=== PATIENT | male | born 1950 | race African-American/Black ===

== ENCOUNTER 2017-11-11 07:15 | Inpatient (IN) ==
[2017-11-06 13:54] LABS: Basophils % 0.2 % (0.0-0.8); Hematocrit 36.1 VOL% (42.0-52.0); Hemoglobin 12.4 GM/DL (14.0-18.0); Immature Granulocytes % 0.2 %; Immature Granulocytes Absolute 0.02 #; Lymphocytes # 2.4 10*3/uL (1.4-4.0); Lymphocytes % 24.6 % (21.2-54.2); Mean Corpuscular HGB Conc 34.3 GM/DL (32-36); Mean Corpuscular Hemoglobin 33 PG (27-34); Mean Corpuscular Volume 96.8 FL (87-102); Mean Platelet Volume 8.5 FL (9.6-12.0); Monocytes # 0.8 10*3/uL (0.11-0.8); Monocytes % 8.1 % (1.7-12.7); Neutrophils # 6.6 10*3/uL (1.4-7.4); Neutrophils % 66.9 % (38.7-73.9); Platelet Count 242 T/CUMM (130-400); Red Blood Count 3.73 MC/CUMM (3.8-5.5); Red Cell Distribution Width 16.3 % (9.3-17.3); White Blood Count 9.8 T/CUMM (4-12)
[2017-11-06 14:23] LABS: Alanine Aminotransferase 17 U/L (16-61); Alkaline Phosphatase 129 U/L (45-117); Aspartate Amino Transferase 15 U/L (0-37); Bilirubin,Total < 0.39 MG/DL (0.2-1.0); Blood Urea Nitrogen 19 MG/DL (7-18); Calcium 8.8 MG/DL (8.5-10.1); Glucose 92 MG/DL (74-106); Osmolality,Calculated 282.3 MOS/KG (273-304); Potassium 5.5 MMOL/L (3.5-5.1); Sodium 141 MMOL/L (136-145); Total Protein 6.6 G/DL (6.4-8.3)
[~2017-11-11 07:15] MED LIST: ceFAZolin 1,000 MG VIAL ONE; ceFAZolin 1,000 MG in SYRINGE 1 EACH IV ONE
[2017-11-11] MEDS ORDERED: FAMOTIDINE 20 MG TABLET ONE (07:43)
[2017-11-11] MEDS ORDERED: FAMOTIDINE 20 MG TABLET PO ONE (07:44)
[2017-11-11] MEDS ORDERED: LACTATED RINGERS 1,000 ML IV SCH (08:00)
[2017-11-11] MEDS ORDERED: THROMBIN TOPICAL (RECOMBINANT) 5,000 UNIT VIAL TOP ONE (08:31)
[2017-11-11] MEDS ORDERED: LIDOCAINE 1% 50 ML VIAL ONE (08:31)
[2017-11-11] MEDS ORDERED: HEPARIN 5,000 UNIT/1 ML VIAL ONE (08:31)
[2017-11-11] MEDS ORDERED: VANCOMYCIN 500 MG VIAL ONE (08:31)
[2017-11-11] MEDS ORDERED: PROPOFOL 200 MG/20 ML VIAL IV ONE (12:06)
[2017-11-11] MEDS ORDERED: HEPARIN 10,000 UNIT/10 ML VIAL ONE (12:07)
[2017-11-11] MEDS ORDERED: MIDAZOLAM 2 MG/2 ML VIAL ONE (12:07)
[2017-11-11] MEDS ORDERED: GLYCOPYRROLATE 0.4 MG/2 ML VIAL ONE (12:07)
[2017-11-11] MEDS ORDERED: PHENYLEPHRINE 10 MG/1 ML VIAL IV ONE (12:07)
[2017-11-11] MEDS ORDERED: SEVOFLURANE 1 UNIT/15 MINUTE INH ONE (12:07)
[2017-11-11] MEDS ORDERED: fentaNYL 100 MCG/2 ML VIAL ONE (12:07)
[2017-11-11] MEDS ORDERED: ONDANSETRON 4 MG/2 ML VIAL ONE (12:07)
[2017-11-11] MEDS ORDERED: ROCURONIUM 100 MG/10 ML VIAL IV ONE (12:08)
[2017-11-11] MEDS ORDERED: NEOSTIGMINE 10 MG/10 ML VIAL ONE (12:08)
[2017-11-11] MEDS ORDERED: SODIUM CHLORIDE 0.9% 1,000 ML IV ONE (12:08)
[2017-11-11] MEDS: HYDROmorphone 2 MG/1 ML VIAL IV PRN ×3 (12:11→21:36)
[2017-11-11 13:24] LABS: Calcium 8.1 MG/DL (8.5-10.1); Osmolality,Calculated 280.4 MOS/KG (273-304); Potassium 4.3 MMOL/L (3.5-5.1)
[2017-11-11] MEDS: DEXTROSE 5% NACL 0.45% 1,000 ML IV SCH ×2 (13:54→21:44)
[2017-11-11] MEDS: LACOSAMIDE 50 MG TABLET PO SCH (21:33)
[2017-11-11] MEDS: MEMANTINE 10 MG TABLET PO SCH (21:33)
[2017-11-11] MEDS: ATORVASTATIN 20 MG TABLET PO SCH (21:34)
[2017-11-11] MEDS: PHENYTOIN ER 100 MG CAPSULE PO SCH (21:34)
[2017-11-11] MEDS: CILOSTAZOL 100 MG TABLET PO SCH (21:34)
[2017-11-11] MEDS: DONEPEZIL 10 MG TABLET PO SCH (21:34)
[2017-11-11] MEDS: ONDANSETRON 4 MG/2 ML VIAL IV PRN (21:49)
[2017-11-12] MEDS: DEXTROSE 5% NACL 0.45% 1,000 ML IV SCH (05:58)
[2017-11-12 06:15] LABS: Hemoglobin 11.2 GM/DL (14.0-18.0)
[2017-11-12 06:46] LABS: Calcium 8.9 MG/DL (8.5-10.1); Osmolality,Calculated 276.7 MOS/KG (273-304); Potassium 3.8 MMOL/L (3.5-5.1)
[2017-11-12] MEDS: HYDROmorphone 2 MG/1 ML VIAL IV PRN ×2 (07:45→21:16)
[2017-11-12] MEDS ORDERED: ASPIRIN EC 81 MG TABLET PO SCH (09:00)
[2017-11-12] MEDS: ASPIRIN CHEW 81 MG TABLET PO SCH (10:54)
[2017-11-12] MEDS: CILOSTAZOL 100 MG TABLET PO SCH ×2 (10:54→21:21)
[2017-11-12] MEDS: MEMANTINE 10 MG TABLET PO SCH ×2 (10:54→21:21)
[2017-11-12] MEDS: PHENYTOIN ER 100 MG CAPSULE PO SCH ×2 (10:55→21:21)
[2017-11-12] MEDS: LACOSAMIDE 50 MG TABLET PO SCH ×2 (10:55→21:21)
[2017-11-12] MEDS: SERTRALINE 25 MG TABLET PO SCH (10:57)
[2017-11-12] MEDS: LISINOPRIL 20 MG TABLET PO SCH (10:57)
[2017-11-12] MEDS ORDERED: SKIN HEALING OINT (AQUAPHOR) 50 GM TUBE TOP PRN (15:14)
[2017-11-12] MEDS: DONEPEZIL 10 MG TABLET PO SCH (21:21)
[2017-11-12] MEDS: ATORVASTATIN 20 MG TABLET PO SCH (21:22)
[2017-11-13] MEDS: HYDROmorphone 2 MG/1 ML VIAL IV PRN ×2 (06:56→21:28)
[2017-11-13] MEDS: CILOSTAZOL 100 MG TABLET PO SCH ×2 (09:02→21:25)
[2017-11-13] MEDS: LACOSAMIDE 50 MG TABLET PO SCH ×2 (09:02→21:24)
[2017-11-13] MEDS: PHENYTOIN ER 100 MG CAPSULE PO SCH ×2 (09:03→21:25)
[2017-11-13] MEDS: LISINOPRIL 20 MG TABLET PO SCH (09:03)
[2017-11-13] MEDS: MEMANTINE 10 MG TABLET PO SCH ×2 (09:03→21:24)
[2017-11-13] MEDS: SERTRALINE 25 MG TABLET PO SCH (09:03)
[2017-11-13] MEDS: ASPIRIN CHEW 81 MG TABLET PO SCH (09:03)
[2017-11-13] MEDS ORDERED: MAGNESIUM HYDROXIDE SUSP 30 ML UDCUP PO PRN (14:15)
[2017-11-13] MEDS: ATORVASTATIN 20 MG TABLET PO SCH (21:25)
[2017-11-13] MEDS: DONEPEZIL 10 MG TABLET PO SCH (21:25)
[2017-11-14] MEDS: HYDROmorphone 2 MG/1 ML VIAL IV PRN ×2 (04:19→22:55)
[2017-11-14] MEDS: ONDANSETRON 4 MG/2 ML VIAL IV PRN (06:38)
[2017-11-14 09:14] LABS: Basophils % 0.1 % (0.0-0.8); Hematocrit 30.5 VOL% (42.0-52.0); Hemoglobin 10.6 GM/DL (14.0-18.0); Immature Granulocytes % 0.3 %; Immature Granulocytes Absolute 0.04 #; Lymphocytes # 2.1 10*3/uL (1.4-4.0); Lymphocytes % 16.5 % (21.2-54.2); Mean Corpuscular HGB Conc 34.8 GM/DL (32-36); Mean Corpuscular Hemoglobin 34 PG (27-34); Mean Corpuscular Volume 96.8 FL (87-102); Mean Platelet Volume 9.3 FL (9.6-12.0); Monocytes # 1.6 10*3/uL (0.11-0.8); Monocytes % 12.7 % (1.7-12.7); Neutrophils # 8.8 10*3/uL (1.4-7.4); Neutrophils % 70.4 % (38.7-73.9); Platelet Count 203 T/CUMM (130-400); Red Blood Count 3.15 MC/CUMM (3.8-5.5); Red Cell Distribution Width 15.3 % (9.3-17.3); White Blood Count 12.5 T/CUMM (4-12)
[2017-11-14] MEDS: SERTRALINE 25 MG TABLET PO SCH (10:17)
[2017-11-14] MEDS: CILOSTAZOL 100 MG TABLET PO SCH ×2 (10:17→20:52)
[2017-11-14] MEDS: MEMANTINE 10 MG TABLET PO SCH ×2 (10:17→20:52)
[2017-11-14] MEDS: LACOSAMIDE 50 MG TABLET PO SCH ×2 (10:17→20:52)
[2017-11-14] MEDS: ASPIRIN CHEW 81 MG TABLET PO SCH (10:18)
[2017-11-14] MEDS: ACETAMINOPHEN 325 MG TABLET PO PRN (10:18)
[2017-11-14] MEDS: LISINOPRIL 20 MG TABLET PO SCH (10:18)
[2017-11-14] MEDS: PHENYTOIN ER 100 MG CAPSULE PO SCH ×2 (10:18→20:51)
[2017-11-14 18:01] LABS: Apearance,Urine CLEAR (Clear); Bilirubin,Urine Negative (Negative); Blood, Urine Moderate mg/dL (Negative); Glucose,Urine (UA) Negative (Negative); Hyaline Casts,Urine 2 /LPF (0-3); Ketones,Urine 5 mg/dL (Negative); Nitrite,Urine Negative (Negative); Protein,Urine Negative; RBC,Urine 20 /HPF (0-4); Squamous Epithelial Cell,Urine Occasional /HPF (0-10); Urine Color Yellow (Yellow); Urine Specific Gravity 1.017 (1.001-1.035); Urine Urobilinogen < 2.0 EU/DL (0.2-1.0); WBC,Urine 5 /HPF (0-6)
[2017-11-14] MEDS: ATORVASTATIN 20 MG TABLET PO SCH (20:51)
[2017-11-14] MEDS: DONEPEZIL 10 MG TABLET PO SCH (20:51)
[2017-11-15] MEDS: HYDROmorphone 2 MG/1 ML VIAL IV PRN (06:53)
[2017-11-15] MEDS: CILOSTAZOL 100 MG TABLET PO SCH (09:48)
[2017-11-15] MEDS: MEMANTINE 10 MG TABLET PO SCH (09:48)
[2017-11-15] MEDS: SERTRALINE 25 MG TABLET PO SCH (09:48)
[2017-11-15] MEDS: PHENYTOIN ER 100 MG CAPSULE PO SCH (09:48)
[2017-11-15] MEDS: LACOSAMIDE 50 MG TABLET PO SCH (09:48)
[2017-11-15] MEDS: ASPIRIN CHEW 81 MG TABLET PO SCH (09:48)
[2017-11-15] MEDS: LISINOPRIL 20 MG TABLET PO SCH (09:48)
[2017-11-15] MEDS: ACETAMINOPHEN 325 MG TABLET PO PRN (09:57)
[2017-11-15 11:28] VITALS: BP 153/76
== END 2017-11-15 12:30 | disposition swing bed (61) | DRG 253 ==
LOC: N.OR 07:15 → N.SDSINP 07:16 → N.3E 10:34
PROVIDERS: ADMIT Surgery; ATTEND Surgery

== ENCOUNTER 2020-09-13 00:08 | Inpatient (IN) ==
[2020-09-13] MEDS ORDERED: PHENYTOIN INJ 1,000 MG in SODIUM CHLORIDE 0.9% 100 ML IV STA (00:54)
[2020-09-13 01:17] LABS: Basophils # 0.1 10*3/uL (0.0-0.2); Basophils % 0.2 % (0.0-0.8); Hematocrit 33.6 VOL% (42.0-52.0); Hemoglobin 11.7 GM/DL (14.0-18.0); Immature Granulocytes % 3.6 %; Immature Granulocytes Absolute 2.07 #; Lymphocytes # 0.9 10*3/uL (1.4-4.0); Lymphocytes % 1.6 % (21.2-54.2); Mean Corpuscular HGB Conc 34.8 GM/DL (32-36); Mean Corpuscular Volume 96.6 FL (87-102); Mean Platelet Volume 10.3 FL (9.6-12.0); Monocytes % 7.1 % (1.7-12.7); Neutrophils % 87.5 % (38.7-73.9); Platelet Count 268 T/CUMM (130-400); Red Blood Count 3.48 MC/CUMM (3.8-5.5); Red Cell Distribution Width 16.5 % (9.3-17.3)
[2020-09-13 01:26] LABS: PT Patient Result 10.8 SECS (9.8-11.9); Partial Thromboplastin Time 23.1 SECS (23.9-33.8)
[2020-09-13 01:31] LABS: White Blood Count 57.5 T/CUMM (4-12)
[2020-09-13] MEDS ORDERED: PIPERACILLIN/TAZOBACTAM 3,375 MG in SODIUM CHLORIDE 0.9% 100 ML IV STA (01:44)
[2020-09-13 02:09] LABS: Calcium 8.3 MG/DL (8.5-10.1); Osmolality,Calculated 274.8 MOS/KG (273-304); Potassium 3.5 MMOL/L (3.5-5.1)
[2020-09-13 02:22] LABS: Lymphocytes 6 % (20-55); Segmented Neutrophils 92 % (50-85); Total Cells Counted 100
[2020-09-13 02:23] LABS: Anisocytosis 1+; Macrocytosis 1+; Microcytosis 1+; Smudge Cells Few
[2020-09-13 02:24] LABS: Platelet Estimate Adequate; Polychromasia Slight; Schistocytes Few; Stomatocytes Few
[2020-09-13 02:30] LABS: Bacteria,Urine Occasional /HPF (Few); Bilirubin,Urine Negative (Negative); Blood, Urine Large mg/dL (Negative); Glucose,Urine (UA) Negative (Negative); Ketones,Urine Negative (Negative); Mucus,Urine Occasional /LPF (Occasional); Nitrite,Urine Negative (Negative); Protein,Urine Negative; RBC,Urine 34 /HPF (0-4); Squamous Epithelial Cell,Urine Occasional /HPF (0-10); Urine Appearance Slightly Hazy (Clear); Urine Color Straw (Yellow); Urine Urobilinogen < 2.0 EU/DL (0.2-1.0); WBC,Urine 13 /HPF (0-6)
[2020-09-13] MEDS ORDERED: ONDANSETRON 4 MG/2 ML VIAL ONE (02:43)
[2020-09-13] MEDS ORDERED: ONDANSETRON 4 MG/2 ML VIAL IV ONE (02:44)
[2020-09-13] MEDS: TAMSULOSIN 0.4 MG CAPSULE PO SCH ×2 (05:40→11:19)
[2020-09-13] MEDS: LACTATED RINGERS 1,000 ML IV SCH ×2 (05:40→14:44)
[2020-09-13] MEDS: MORPHINE 4 MG/1 ML VIAL IV PRN (05:40)
[2020-09-13] MEDS ORDERED: MAGNESIUM SULF RIDER 2 GM in PREMIX 1 EACH IV PRN (13:52)
[2020-09-13] MEDS ORDERED: MAGNESIUM SULF RIDER 4 GM in PREMIX 1 EACH IV PRN (13:52)
[2020-09-13] MEDS ORDERED: LORazepam 2 MG/1 ML VIAL IM PRN (15:09)
[2020-09-13] MEDS ORDERED: POTASSIUM CHLORIDE RIDER 10 MEQ in PREMIX 1 EACH IV PRN (15:36)
[2020-09-13] MEDS ORDERED: POTASSIUM CHLORIDE 20 MEQ TABLET PO PRN (15:36)
[2020-09-13] MEDS ORDERED: hydrALAZINE 20 MG/1 ML VIAL IV PRN (15:45)
[2020-09-13] MEDS ORDERED: PIPERACILLIN/TAZOBACTAM 3,375 MG in SODIUM CHLORIDE 0.9% 100 ML IV SCH (16:00)
[2020-09-13 18:00] LABS: Barbiturates Screen,Urine Negative (Negative); Benzodiazepines Screen,Urine Negative (Negative); Cannabinoid Screen,Urine Positive (Negative); Opiate Screen,Urine Positive (Negative); Phencyclidine Screen,Urine Negative (Negative)
[2020-09-13] MEDS: ERTAPENEM 1,000 MG in SODIUM CHLORIDE 0.9% 100 ML IV SCH (18:08)
[2020-09-13 18:54] LABS: Bilirubin,Urine Negative (Negative); Blood, Urine Large mg/dL (Negative); Glucose,Urine (UA) Negative (Negative); Ketones,Urine Negative (Negative); Mucus,Urine Occasional /LPF (Occasional); Nitrite,Urine Negative (Negative); Protein,Urine 100 MG/DL; RBC,Urine 668 /HPF (0-4); Squamous Epithelial Cell,Urine Occasional /HPF (0-10); Urine Appearance Slightly Hazy (Clear); Urine Color Yellow (Yellow); Urine Specific Gravity 1.011 (1.001-1.035); Urine Urobilinogen < 2.0 EU/DL (0.2-1.0); WBC,Urine 58 /HPF (0-6)
[2020-09-13] MEDS ORDERED: LACOSAMIDE 50 MG TABLET PO SCH (21:00)
[2020-09-13] MEDS: PHENYTOIN ER 100 MG CAPSULE PO SCH (22:33)
[2020-09-13] MEDS: LACOSAMIDE 50 MG TABLET PO SCH (22:33)
[2020-09-13] MEDS: MEMANTINE 10 MG TABLET PO SCH (22:33)
[2020-09-13] MEDS: DONEPEZIL 10 MG TABLET PO SCH (22:34)
[2020-09-14 04:10] LABS: Basophils # 0.1 10*3/uL (0.0-0.2); Basophils % 0.2 % (0.0-0.8); Eosinophils # 0.2 10*3/uL (0.0-0.87); Eosinophils % 0.5 % (0.00-10.9); Hematocrit 31.6 VOL% (42.0-52.0); Hemoglobin 11.3 GM/DL (14.0-18.0); Immature Granulocytes % 0.8 %; Lymphocytes # 3.4 10*3/uL (1.4-4.0); Lymphocytes % 9.1 % (21.2-54.2); Mean Corpuscular HGB Conc 35.8 GM/DL (32-36); Mean Corpuscular Volume 95.8 FL (87-102); Mean Platelet Volume 9.1 FL (9.6-12.0); Monocytes % 9.1 % (1.7-12.7); Neutrophils % 80.3 % (38.7-73.9); Platelet Count 219 T/CUMM (130-400); Red Cell Distribution Width 15.9 % (9.3-17.3)
[2020-09-14 04:32] LABS: Lymphocytes 9 % (20-55); Platelet Estimate Adequate; Segmented Neutrophils 84 % (50-85); Total Cells Counted 100
[2020-09-14 04:33] LABS: Blood Urea Nitrogen 12 MG/DL (7-18); Calcium 8.3 MG/DL (8.5-10.1); Carbon Dioxide 27 MMOL/L (21-32); Estimated Glom Filtration Rate 113 ML/MIN; Glucose 99 MG/DL (74-106); Osmolality,Calculated 278.4 MOS/KG (273-304); Potassium 3.5 MMOL/L (3.5-5.1); Sodium 140 MMOL/L (136-145)
[2020-09-14] MEDS: LACTATED RINGERS 1,000 ML IV SCH ×4 (05:00→21:30)
[2020-09-14] MEDS: PHENYTOIN ER 100 MG CAPSULE PO SCH ×2 (08:18→20:45)
[2020-09-14] MEDS: TAMSULOSIN 0.4 MG CAPSULE PO SCH (08:19)
[2020-09-14] MEDS: SERTRALINE 50 MG TABLET PO SCH (08:19)
[2020-09-14] MEDS: LACOSAMIDE 50 MG TABLET PO SCH ×2 (08:19→20:44)
[2020-09-14] MEDS: MEMANTINE 10 MG TABLET PO SCH ×2 (08:19→20:45)
[2020-09-14] MEDS: ERTAPENEM 1,000 MG in SODIUM CHLORIDE 0.9% 100 ML IV SCH (09:08)
[2020-09-14] MEDS: DONEPEZIL 10 MG TABLET PO SCH (20:45)
[2020-09-15] MEDS: LACTATED RINGERS 1,000 ML IV SCH ×2 (05:30→17:52)
[2020-09-15 05:41] LABS: Basophils # 0.1 10*3/uL (0.0-0.2); Basophils % 0.3 % (0.0-0.8); Eosinophils # 0.4 10*3/uL (0.0-0.87); Eosinophils % 1.4 % (0.00-10.9); Hematocrit 32.4 VOL% (42.0-52.0); Immature Granulocytes % 0.8 %; Immature Granulocytes Absolute 0.23 #; Lymphocytes # 3.3 10*3/uL (1.4-4.0); Mean Corpuscular Volume 97.6 FL (87-102); Mean Platelet Volume 9.2 FL (9.6-12.0); Monocytes % 9.4 % (1.7-12.7); Neutrophils % 77.1 % (38.7-73.9); Platelet Count 204 T/CUMM (130-400); Red Blood Count 3.32 MC/CUMM (3.8-5.5); Red Cell Distribution Width 15.9 % (9.3-17.3); White Blood Count 29.9 T/CUMM (4-12)
[2020-09-15 06:01] LABS: Eosinophils 1 % (0-10); Hypochromasia 1+; Lymphocytes 6 % (20-55); Segmented Neutrophils 86 % (50-85); Target Cells Slight; Total Cells Counted 100
[2020-09-15 06:02] LABS: Microcytosis 1+; Platelet Estimate Normal
[2020-09-15 06:10] LABS: Osmolality,Calculated 280.1 MOS/KG (273-304); Potassium 4.1 MMOL/L (3.5-5.1)
[2020-09-15] MEDS: TAMSULOSIN 0.4 MG CAPSULE PO SCH (08:56)
[2020-09-15] MEDS: SERTRALINE 50 MG TABLET PO SCH (08:56)
[2020-09-15] MEDS: LACOSAMIDE 50 MG TABLET PO SCH ×2 (08:56→20:33)
[2020-09-15] MEDS: PHENYTOIN ER 100 MG CAPSULE PO SCH ×2 (08:56→20:34)
[2020-09-15] MEDS: ERTAPENEM 1,000 MG in SODIUM CHLORIDE 0.9% 100 ML IV SCH (08:56)
[2020-09-15] MEDS: MEMANTINE 10 MG TABLET PO SCH ×2 (08:57→20:34)
[2020-09-15] MEDS: DONEPEZIL 10 MG TABLET PO SCH (20:34)
[2020-09-16 06:23] LABS: Basophils # 0.1 10*3/uL (0.0-0.2); Basophils % 0.2 % (0.0-0.8); Eosinophils # 0.4 10*3/uL (0.0-0.87); Eosinophils % 1.1 % (0.00-10.9); Hematocrit 36.5 VOL% (42.0-52.0); Hemoglobin 12.3 GM/DL (14.0-18.0); Immature Granulocytes Absolute 0.34 #; Lymphocytes # 3.1 10*3/uL (1.4-4.0); Mean Corpuscular HGB Conc 33.7 GM/DL (32-36); Mean Corpuscular Volume 97.9 FL (87-102); Mean Platelet Volume 9.2 FL (9.6-12.0); Monocytes % 7.5 % (1.7-12.7); Neutrophils % 81.2 % (38.7-73.9); Platelet Count 258 T/CUMM (130-400); Red Blood Count 3.73 MC/CUMM (3.8-5.5); Red Cell Distribution Width 15.8 % (9.3-17.3); White Blood Count 34.5 T/CUMM (4-12)
[2020-09-16 06:48] LABS: Calcium 9.4 MG/DL (8.5-10.1); Hypochromasia 1+; Microcytosis 1+; Osmolality,Calculated 276.4 MOS/KG (273-304); Potassium 3.5 MMOL/L (3.5-5.1); Target Cells Slight
[2020-09-16 06:49] LABS: Platelet Estimate Normal
[2020-09-16] MEDS: LACOSAMIDE 50 MG TABLET PO SCH ×2 (08:58→21:50)
[2020-09-16] MEDS: TAMSULOSIN 0.4 MG CAPSULE PO SCH (08:59)
[2020-09-16] MEDS: SERTRALINE 50 MG TABLET PO SCH (08:59)
[2020-09-16] MEDS: MEMANTINE 10 MG TABLET PO SCH ×2 (08:59→21:50)
[2020-09-16] MEDS: PHENYTOIN ER 100 MG CAPSULE PO SCH ×2 (08:59→21:50)
[2020-09-16] MEDS: ERTAPENEM 1,000 MG in SODIUM CHLORIDE 0.9% 100 ML IV SCH (08:59)
[2020-09-16] MEDS: traZODone 50 MG TABLET PO PRN (21:52)
[2020-09-16] MEDS: DONEPEZIL 10 MG TABLET PO SCH (21:52)
[2020-09-17 03:32] LABS: Basophils # 0.1 10*3/uL (0.0-0.2); Basophils % 0.2 % (0.0-0.8); Eosinophils # 0.2 10*3/uL (0.0-0.87); Eosinophils % 0.6 % (0.00-10.9); Hematocrit 31.3 VOL% (42.0-52.0); Hemoglobin 10.8 GM/DL (14.0-18.0); Immature Granulocytes % 0.8 %; Immature Granulocytes Absolute 0.29 #; Lymphocytes # 2.8 10*3/uL (1.4-4.0); Lymphocytes % 7.9 % (21.2-54.2); Mean Corpuscular HGB Conc 34.5 GM/DL (32-36); Mean Corpuscular Volume 96.9 FL (87-102); Mean Platelet Volume 8.9 FL (9.6-12.0); Monocytes % 7.8 % (1.7-12.7); Neutrophils % 82.7 % (38.7-73.9); Platelet Count 229 T/CUMM (130-400); Red Blood Count 3.23 MC/CUMM (3.8-5.5); Red Cell Distribution Width 15.1 % (9.3-17.3); White Blood Count 35.3 T/CUMM (4-12)
[2020-09-17 03:50] LABS: Calcium 8.9 MG/DL (8.5-10.1); Osmolality,Calculated 272.7 MOS/KG (273-304); Potassium 3.6 MMOL/L (3.5-5.1)
[2020-09-17 04:16] LABS: Hypochromasia 1+; Lymphocytes 8 % (20-55); Microcytosis 1+; Platelet Estimate Adequate; Segmented Neutrophils 83 % (50-85); Total Cells Counted 100
[2020-09-17] MEDS: ACETAMINOPHEN 500 MG TABLET PO PRN ×2 (07:07→13:26)
[2020-09-17] MEDS: TAMSULOSIN 0.4 MG CAPSULE PO SCH (08:58)
[2020-09-17] MEDS: SERTRALINE 50 MG TABLET PO SCH (08:59)
[2020-09-17] MEDS: MEMANTINE 10 MG TABLET PO SCH ×2 (08:59→21:17)
[2020-09-17] MEDS: LACOSAMIDE 50 MG TABLET PO SCH ×2 (08:59→21:16)
[2020-09-17] MEDS: PHENYTOIN ER 100 MG CAPSULE PO SCH ×2 (09:01→21:18)
[2020-09-17] MEDS: ERTAPENEM 1,000 MG in SODIUM CHLORIDE 0.9% 100 ML IV SCH (09:04)
[2020-09-17] MEDS: traMADol 50 MG TABLET PO PRN (21:17)
[2020-09-17] MEDS: DONEPEZIL 10 MG TABLET PO SCH (21:18)
[2020-09-17] MEDS: traZODone 50 MG TABLET PO PRN (21:18)
[2020-09-18] MEDS: ACETAMINOPHEN 500 MG TABLET PO PRN (01:13)
[2020-09-18 05:48] LABS: Basophils # 0.1 10*3/uL (0.0-0.2); Basophils % 0.3 % (0.0-0.8); Eosinophils # 0.2 10*3/uL (0.0-0.87); Eosinophils % 0.5 % (0.00-10.9); Hematocrit 32.3 VOL% (42.0-52.0); Hemoglobin 11.2 GM/DL (14.0-18.0); Immature Granulocytes % 0.6 %; Lymphocytes % 9.6 % (21.2-54.2); Mean Corpuscular HGB Conc 34.7 GM/DL (32-36); Mean Corpuscular Volume 96.7 FL (87-102); Mean Platelet Volume 9.7 FL (9.6-12.0); Monocytes % 8.8 % (1.7-12.7); Neutrophils % 80.2 % (38.7-73.9); Platelet Count 255 T/CUMM (130-400); Red Blood Count 3.34 MC/CUMM (3.8-5.5); Red Cell Distribution Width 15.3 % (9.3-17.3)
[2020-09-18] MEDS: traMADol 50 MG TABLET PO PRN (05:55)
[2020-09-18 06:04] LABS: Calcium 8.9 MG/DL (8.5-10.1); Osmolality,Calculated 275.5 MOS/KG (273-304); Potassium 3.8 MMOL/L (3.5-5.1)
[2020-09-18 06:14] LABS: Platelet Estimate Adequate
[2020-09-18] MEDS: MORPHINE 4 MG/1 ML VIAL IV PRN (07:50)
[2020-09-18] MEDS: ERTAPENEM 1,000 MG in SODIUM CHLORIDE 0.9% 100 ML IV SCH (08:11)
[2020-09-18] MEDS: SERTRALINE 50 MG TABLET PO SCH (08:11)
[2020-09-18] MEDS: MEMANTINE 10 MG TABLET PO SCH ×2 (08:11→23:40)
[2020-09-18] MEDS: TAMSULOSIN 0.4 MG CAPSULE PO SCH (08:11)
[2020-09-18] MEDS: PHENYTOIN ER 100 MG CAPSULE PO SCH ×2 (08:11→23:40)
[2020-09-18] MEDS: LACOSAMIDE 50 MG TABLET PO SCH ×2 (08:11→23:41)
[2020-09-18] MEDS: traZODone 50 MG TABLET PO PRN (23:40)
[2020-09-18] MEDS: DONEPEZIL 10 MG TABLET PO SCH (23:41)
[2020-09-19 03:46] LABS: Basophils # 0.1 10*3/uL (0.0-0.2); Basophils % 0.2 % (0.0-0.8); Eosinophils # 0.2 10*3/uL (0.0-0.87); Eosinophils % 0.7 % (0.00-10.9); Hematocrit 31.6 VOL% (42.0-52.0); Hemoglobin 10.8 GM/DL (14.0-18.0); Immature Granulocytes % 0.8 %; Immature Granulocytes Absolute 0.23 #; Lymphocytes % 10.5 % (21.2-54.2); Mean Corpuscular HGB Conc 34.2 GM/DL (32-36); Mean Corpuscular Volume 97.2 FL (87-102); Mean Platelet Volume 9.6 FL (9.6-12.0); Monocytes % 9.3 % (1.7-12.7); Neutrophils % 78.5 % (38.7-73.9); Platelet Count 278 T/CUMM (130-400); Red Blood Count 3.25 MC/CUMM (3.8-5.5); White Blood Count 28.6 T/CUMM (4-12)
[2020-09-19 04:07] LABS: Osmolality,Calculated 271.8 MOS/KG (273-304); Potassium 3.8 MMOL/L (3.5-5.1)
[2020-09-19 04:13] LABS: Lymphocytes 8 % (20-55); Platelet Estimate Adequate; Segmented Neutrophils 88 % (50-85); Total Cells Counted 100
[2020-09-19 04:14] LABS: Hypochromasia 1+; Microcytosis Slight
[2020-09-19] MEDS: traMADol 50 MG TABLET PO PRN ×2 (05:39→21:02)
[2020-09-19] MEDS: PHENYTOIN ER 100 MG CAPSULE PO SCH ×2 (09:09→21:01)
[2020-09-19] MEDS: SERTRALINE 50 MG TABLET PO SCH (09:09)
[2020-09-19] MEDS: LACOSAMIDE 50 MG TABLET PO SCH ×2 (09:09→21:01)
[2020-09-19] MEDS: MEMANTINE 10 MG TABLET PO SCH ×2 (09:10→21:02)
[2020-09-19] MEDS: TAMSULOSIN 0.4 MG CAPSULE PO SCH (09:10)
[2020-09-19] MEDS: ERTAPENEM 1,000 MG in SODIUM CHLORIDE 0.9% 100 ML IV SCH (09:11)
[2020-09-19] MEDS: traZODone 50 MG TABLET PO PRN (21:01)
[2020-09-19] MEDS: DONEPEZIL 10 MG TABLET PO SCH (21:02)
[2020-09-20] MEDS: ACETAMINOPHEN 500 MG TABLET PO PRN (01:03)
[2020-09-20] MEDS: traMADol 50 MG TABLET PO PRN ×2 (05:49→20:02)
[2020-09-20] MEDS: LACOSAMIDE 50 MG TABLET PO SCH ×2 (09:40→20:02)
[2020-09-20] MEDS: TAMSULOSIN 0.4 MG CAPSULE PO SCH (09:40)
[2020-09-20] MEDS: SERTRALINE 50 MG TABLET PO SCH (09:41)
[2020-09-20] MEDS: PHENYTOIN ER 100 MG CAPSULE PO SCH ×2 (09:41→20:02)
[2020-09-20] MEDS: ERTAPENEM 1,000 MG in SODIUM CHLORIDE 0.9% 100 ML IV SCH (09:41)
[2020-09-20] MEDS: MEMANTINE 10 MG TABLET PO SCH ×2 (09:41→20:02)
[2020-09-20] MEDS: traZODone 50 MG TABLET PO PRN (20:02)
[2020-09-20] MEDS: DONEPEZIL 10 MG TABLET PO SCH (20:02)
[2020-09-21] MEDS: ACETAMINOPHEN 500 MG TABLET PO PRN (00:20)
[2020-09-21 06:05] LABS: Basophils # 0.1 10*3/uL (0.0-0.2); Basophils % 0.2 % (0.0-0.8); Eosinophils # 0.3 10*3/uL (0.0-0.87); Eosinophils % 1.6 % (0.00-10.9); Hematocrit 30.6 VOL% (42.0-52.0); Hemoglobin 10.6 GM/DL (14.0-18.0); Immature Granulocytes % 0.6 %; Immature Granulocytes Absolute 0.12 #; Lymphocytes # 2.7 10*3/uL (1.4-4.0); Lymphocytes % 13.2 % (21.2-54.2); Mean Corpuscular HGB Conc 34.6 GM/DL (32-36); Mean Corpuscular Volume 95.9 FL (87-102); Mean Platelet Volume 9.1 FL (9.6-12.0); Monocytes % 10.8 % (1.7-12.7); Neutrophils % 73.6 % (38.7-73.9); Platelet Count 355 T/CUMM (130-400); Red Blood Count 3.19 MC/CUMM (3.8-5.5); Red Cell Distribution Width 14.9 % (9.3-17.3); White Blood Count 20.4 T/CUMM (4-12)
[2020-09-21 06:27] LABS: Eosinophils 3 % (0-10); Hypochromasia 1+; Lymphocytes 10 % (20-55); Microcytosis Slight; Segmented Neutrophils 80 % (50-85); Target Cells Slight; Total Cells Counted 100
[2020-09-21 06:28] LABS: Platelet Estimate Normal
[2020-09-21] MEDS: traMADol 50 MG TABLET PO PRN (06:39)
[2020-09-21 06:41] LABS: Alanine Aminotransferase 12 U/L (16-61); Alkaline Phosphatase 144 U/L (45-117); Aspartate Amino Transferase 13 U/L (0-37); Bilirubin,Total < 0.39 MG/DL (0.2-1.0); Blood Urea Nitrogen 14 MG/DL (7-18); Carbon Dioxide 28 MMOL/L (21-32); Estimated Glom Filtration Rate 106 ML/MIN; Glucose 90 MG/DL (74-106); Osmolality,Calculated 277.5 MOS/KG (273-304); Potassium 4.2 MMOL/L (3.5-5.1); Sodium 139 MMOL/L (136-145); Total Protein 6.6 G/DL (6.4-8.2)
[2020-09-21] MEDS: PHENYTOIN ER 100 MG CAPSULE PO SCH ×2 (09:02→20:52)
[2020-09-21] MEDS: LACOSAMIDE 50 MG TABLET PO SCH ×2 (09:03→20:51)
[2020-09-21] MEDS: SERTRALINE 50 MG TABLET PO SCH (09:03)
[2020-09-21] MEDS: MEMANTINE 10 MG TABLET PO SCH ×2 (09:03→20:52)
[2020-09-21] MEDS: TAMSULOSIN 0.4 MG CAPSULE PO SCH (09:03)
[2020-09-21] MEDS: ERTAPENEM 1,000 MG in SODIUM CHLORIDE 0.9% 100 ML IV SCH (10:34)
[2020-09-21] MEDS: DONEPEZIL 10 MG TABLET PO SCH (20:51)
[2020-09-22] MEDS: traMADol 50 MG TABLET PO PRN (03:20)
[2020-09-22 07:53] VITALS: BP 125/62
[2020-09-22] MEDS: LACOSAMIDE 50 MG TABLET PO SCH (08:45)
[2020-09-22] MEDS: SERTRALINE 50 MG TABLET PO SCH (08:45)
[2020-09-22] MEDS: ERTAPENEM 1,000 MG in SODIUM CHLORIDE 0.9% 100 ML IV SCH (08:45)
[2020-09-22] MEDS: TAMSULOSIN 0.4 MG CAPSULE PO SCH (08:45)
[2020-09-22] MEDS: MEMANTINE 10 MG TABLET PO SCH (08:46)
[2020-09-22] MEDS: PHENYTOIN ER 100 MG CAPSULE PO SCH (08:46)
== END 2020-09-22 11:02 | disposition home health service (06) | DRG 57 ==
LOC: EDBD → EDUNIT# → N.ED 00:08 → N.EDINP 03:04 → N.5E 04:03
PROVIDERS: ADMIT Family Medicine; ATTEND Family Medicine

== ENCOUNTER 2022-03-10 08:00 | Inpatient (IN) ==
[2022-03-10] MEDS ORDERED: TICAGRELOR 90 MG TABLET PO STA (08:12)
[2022-03-10] MEDS ORDERED: ASPIRIN 325 MG TABLET ONE (08:12)
[2022-03-10] MEDS ORDERED: TICAGRELOR 90 MG TABLET ONE (08:12)
[2022-03-10] MEDS ORDERED: ASPIRIN CHEW 81 MG TABLET PO ONE (08:12)
[2022-03-10] MEDS ORDERED: NITROGLYCERIN SL 0.4 MG TABLET SL PRN (08:12)
[2022-03-10] MEDS ORDERED: HEPARIN 5,000 UNIT/1 ML VIAL ONE ×2 (08:12→08:44)
[2022-03-10] MEDS ORDERED: ASPIRIN 325 MG TABLET PO STA (08:12)
[2022-03-10] MEDS ORDERED: HEPARIN 5,000 UNIT/1 ML VIAL IV ONE (08:12)
[2022-03-10 08:25] LABS: Basophils % 0.2 % (0.0-0.8); Hematocrit 42.9 VOL% (42.0-52.0); Hemoglobin 14.3 GM/DL (14.0-18.0); Immature Granulocytes % 0.3 %; Immature Granulocytes Absolute 0.04 #; Lymphocytes # 1.4 10*3/uL (1.4-4.0); Lymphocytes % 11.8 % (21.2-54.2); Mean Corpuscular HGB Conc 33.3 GM/DL (32-36); Mean Corpuscular Volume 98.6 FL (87-102); Mean Platelet Volume 9.1 FL (9.6-12.0); Monocytes # 0.7 10*3/uL (0.11-0.8); Monocytes % 5.8 % (1.7-12.7); Neutrophils % 81.9 % (38.7-73.9); Platelet Count 299 T/CUMM (130-400); Red Blood Count 4.35 MC/CUMM (3.8-5.5); Red Cell Distribution Width 14.8 % (9.3-17.3); White Blood Count 11.7 T/CUMM (4-12)
[2022-03-10] MEDS ORDERED: SODIUM CHLORIDE 0.9% 1,000 ML IV SCH (08:30)
[2022-03-10] MEDS ORDERED: fentaNYL 100 MCG/2 ML VIAL ONE (08:38)
[2022-03-10] MEDS ORDERED: MIDAZOLAM 2 MG/2 ML VIAL ONE (08:38)
[2022-03-10] MEDS ORDERED: ACETAMINOPHEN 325 MG TABLET PO PRN (08:43)
[2022-03-10] MEDS ORDERED: ONDANSETRON 4 MG/2 ML VIAL IV PRN (08:43)
[2022-03-10] MEDS ORDERED: hydrALAZINE 20 MG/1 ML VIAL ONE (08:47)
[2022-03-10 08:48] LABS: Alanine Aminotransferase 16 U/L (16-61); Albumin 4.1 G/DL (3.4-5.0); Alkaline Phosphatase 161 U/L (45-117); Aspartate Amino Transferase 34 U/L (0-37); Bilirubin,Total < 0.39 MG/DL (0.20-1.00); Blood Urea Nitrogen 18 MG/DL (7-18); Carbon Dioxide 28 MMOL/L (21-32); Chloride 101 MMOL/L (98-107); Glucose 141 MG/DL (74-106); Osmolality,Calculated 273.1 MOS/KG (273-304); Sodium 135 MMOL/L (136-145); Total Protein 8.4 G/DL (6.4-8.2)
[2022-03-10] MEDS ORDERED: DOPamine 800 MG/250 ML PREMIX IV ONE (09:06)
[2022-03-10] MEDS ORDERED: ONDANSETRON 4 MG/2 ML VIAL ONE (09:18)
[2022-03-10] MEDS ORDERED: EPINEPHrine 1 MG/10 ML SYRINGE ONE (09:51)
[2022-03-10] MEDS ORDERED: ETOMIDATE 20 MG/10 ML VIAL IV ONE (10:21)
[2022-03-10] MEDS ORDERED: ROCURONIUM 100 MG/10 ML VIAL IV ONE (10:21)
[2022-03-10 10:23] VITALS: BP 176/86
== END 2022-03-10 09:41 | disposition expired | DRG 251 ==
LOC: N.ED 08:00 → N.SDSINP 08:24 → N.CL 08:51 → N.ICU 09:14 → N.CVR 09:40 → EDSDCBED 09:40 → N.CVR 10:43 → N.CL 10:55 → UNDODEPSDC 03-27 16:05
PROVIDERS: ADMIT Internal Medicine Cardiovascular Disease; ATTEND Internal Medicine Cardiovascular Disease
PROC: CLCCHCL (ICD-10-PCS; 2022-03-10 08:45)